=== PATIENT | male | born 1950 | race Caucasian/White ===

== ENCOUNTER 2017-01-26 07:20 | Day surgery (SDC) | payer MEDICARE, BC ==
[2017-01-14 09:23] LABS: BASOPHILS 0.1 %; BASOPHILS ABSOLUTE 0.01 10/3/uL (0.0-0.16); EOSINOPHILS 1.7 %; EOSINOPHILS ABSOLUTE 0.12 10/3/uL (0.0-0.53); HEMATOCRIT 45.1 % (40.0-51.0); HEMOGLOBIN 15.6 g/dL (13.6-17.8); IMMATURE GRANULOCYTES 0.3 %; IMMATURE GRANULOCYTES ABSOLUTE 0.02 10/3/uL (0.0-0.11); LYMPHOCYTES 32.4 %; LYMPHOCYTES ABSOLUTE 2.31 10/3/uL (0.67-4.30); MEAN CORPUS HGB CONC 34.6 g/dL (32.0-36.0); MEAN CORPUSCULAR HEMOGLOB 29.2 pg (26.0-34.0); MEAN CORPUSCULAR VOLUME 84.3 fL (80-100); MEAN PLATELET VOLUME 10.4 fL (9.2-13.0); MONOCYTES 11.9 %; MONOCYTES ABSOLUTE 0.85 10/3/uL (0.21-1.20); NEUTROPHILS 53.6 %; NEUTROPHILS ABSOLUTE 3.81 10/3/uL (2.02-8.40); PLATELET COUNT 285 10/3/uL (150-400); RBC DISTRIBUTION WIDTH 13.6 % (12.0-16.0); RED CELL COUNT 5.35 10/6/uL (4.7-6.1); WHITE BLOOD CELLS 7.1 10/3/uL (4.5-10.5)
[2017-01-14 09:24] LABS: MANUAL DIFF NO %
[2017-01-14 09:34] LABS: BUN (BLOOD UREA NITROGEN) 18 MG/DL (6-23); CALCIUM, SERUM 9.2 MG/DL (8.5-10.4); CHLORIDE, SERUM 104 MMOL/L (96-112); CO2 (CARBON DIOXIDE) 25 MMOL/L (24-34); CREATININE 1.11 MG/DL (0.70-1.30); GFR AFRICAN AMERICAN 80 ML/MIN (>=60); GFR NON AFRICAN AMERICAN 69 ML/MIN (>=60); GLUCOSE, SERUM 119 MG/DL (60-99); POTASSIUM, SERUM 4.5 MMOL/L (3.5-5.3); SGOT(AST) 24 U/L (5-40); SGPT(ALT) 42 U/L (5-65); SODIUM, SERUM 141 MMOL/L (135-148); TOTAL PROTEIN 7.8 G/DL (6.0-8.5)
[2017-01-14 09:38] LABS: ALBUMIN 3.8 G/DL (3.5-5.0); ALKALINE PHOSPHATASE 90 U/L (45-117); TOTAL BILIRUBIN 1.2 MG/DL (0-1.2)
--- NOTE | ~2017-01-26 | OP ---
[facility] [address] [place]. [address] NAME: YANIRA COL[place]ADO : 50 [place]US [place] [facility] [place] [id number] AGE: 66 ADM/REG DATE : 01/26/17 MR#: [id number] REPORT SERV DATE: 01/26/17 DICTATED BY: SHAYNE CASILLAS DATE: 01/26/17 REPORT STATUS : Draft TRANSCRIBED BY: MODL DATE: 01/26/17 DATE OF PROCEDURE: 01/26/2017 PREOPERATIVE DIAGNOSIS: Nodule, left lateral lobe prostate. POSTOPERATIVE DIAGNOSIS: Nodule, left lateral lobe prostate. OPERATIVE PROCEDURE: Transrectal ultrasound-guided needle biopsy of the prostate. ANESTHESIA: Monitored anesthesia care (MAC). ESTIMATED BLOOD LOSS: Less than 5 mL. SPECIMENS: Prostate x18 (3 right base, 3 right mid gland, 3 right apex, 3 left base, 3 left mid gland, 3 left apex). COMPLICATIONS: None. DRAINS: None. IMMEDIATE POSTOP: Satisfactory. DESCRIPTION OF PROCEDURE: The patient was brought into the cysto suite, placed in lateral decubitus position and given intravenous sedation by the Anesthesia Department. A digital rectal exam was performed which revealed about a 1.5 cm nodule on the left lateral lobe of the prostate. Rendering gland was palpably unremarkable. At this point, transrectal ultrasound probe containing needle biopsy guide was then passed by the test technician. Gland was imaged and measured both in transverse and longitudinal planes. There were numerous calcifications noted. There was suggestion of a subtle hypoechoic area on the left lateral lobe. The gland measured 5.1 cm in length, 3.64 cm in height and 4.68 cm in width for a volume of 45.56 mL. Biopsies were obtained from throughout the gland in the pattern dictated above using a disposable biopsy gun. At close of procedure, a Gel-Foam absorbable rectal packing was placed. The patient was awakened and sent to recovery in satisfactory condition. There were no complications. /ANDREW Shayne Casillas M.D. / [id number] CC: Shayne Casillas M.D. [facility] [place] [address] [address] NAME: YANIRA COLORADO : 50 STATUS : REG [facility]#: [id number] AGE: 66 ADM/REG DATE : 01/26/17 MR#: [id number] REPORT SERV DATE: 01/26/17 DICTATED BY: SHAYNE CASILLAS DATE: 01/26/17 REPORT STATUS : Draft TRANSCRIBED BY: ANDREW DATE: 01/26/17 Mayi Miner M.D.
[~2017-01-26 07:20] MED LIST: ASAB PO; ATEN25 PO; CO Q-10100 MG PO; COQ-1010 MG PO; ELIQUIS 5 MG TAB5 MG PO; ENDOCET1 TA1 PO; MULTIPLE VIT PO; NORCO1 TAB PO; PROSTATE COMPLETE PO; T PO; ZOFRAN ODT4 MG PO; [UNRECOGNIZED DRUG - REMARK]
== END 2017-01-26 23:59 | disposition home or self-care (01) ==
LOC: SDC 07:20
PROVIDERS: Urology
PROC: 0VB03ZX Excision of Prostate, Percutaneous Approach, Diagnostic (ICD-10-PCS; principal; 2017-01-26 08:45)
DX: N40.2 Nodular prostate without lower urinary tract symptoms (principal); I10 Essential (primary) hypertension; K21.9 Gastro-esophageal reflux disease without esophagitis; H91.90 Unspecified hearing loss, unspecified ear; M19.90 Unspecified osteoarthritis, unspecified site; Z88.2 Allergy status to sulfonamides; Z88.1 Allergy status to other antibiotic agents; Z88.8 Allergy status to other drugs, medicaments and biological substances; Z79.899 Other long term (current) drug therapy; Z86.711 Personal history of pulmonary embolism; Z90.49 Acquired absence of other specified parts of digestive tract; Z87.442 Personal history of urinary calculi; Z98.52 Vasectomy status; Z98.890 Other specified postprocedural states
CPT/HCPCS: 71020; 76872; 76942; 80053; 85025; 88305; J1580; J2250; J2405; J3010